=== PATIENT | male | born 1975 | race Caucasian/White ===

== ENCOUNTER 2016-09-21 20:41 | Emergency (ER) | payer OTHER ==
[2016-09-21 21:01] VITALS: BP 129/78; PULSE 76; RESP 20; TEMP 97.6
--- NOTE | 2016-09-21 21:08 | ED ---
General Adult HPI - General Chief complaint: Shortness of Breath Stated complaint: IHS/Rib Pain Time Seen by Provider: 09/21/16 21:02 Source: patient, RN notes reviewed Mode of arrival: ambulatory Limitations: no limitations - History of Present Illness Initial comments: 41-year-old male presents emergency Department chief complaint right sided rib injury. Patient states that he was at work and states that he was walking forward went to reach for something and caught his rib on a metal bar. Patient states he walked right into a metal bar. Patient states that in 4 hours prior arrival. Patient states the pain has improved with icing but he continues to have pain. Denies any abdominal pain including nausea, vomiting diarrhea constipation. Patient states that he does have some mild shortness of breath but was related to pain. Patient states there is a area of a red genesis on his right anterior chest wall - Related Data Home Medications Medication Instructions Recorded Confirmed No Known Home Medications [No 09/21/16 09/21/16 Known Home Medications] Allergies Allergy/AdvReac Type Severity Reaction Status Date / Time codeine AdvReac Nausea & Verified 09/21/16 21:01 Vomiting Review of Systems ROS Statement: Those systems with pertinent positive or pertinent negative responses have been documented in the HPI. ROS Other: All systems not noted in ROS Statement are negative. Past Medical History Past Medical History: Asthma History of Any Multi-Drug Resistant Organisms: None Reported Past Surgical History: No Surgical Hx Reported Past Psychological History: No Psychological Hx Reported Smoking Status: Current every day smoker Past Alcohol Use History: Occasional Past Drug Use History: Marijuana General Exam Limitations: no limitations General appearance: alert, in no apparent distress Neck exam: Present: normal inspection, full ROM. Absent: tenderness, meningismus, lymphadenopathy Respiratory exam: Present: normal lung sounds bilaterally, chest wall tenderness (Moderate tenderness over the mid to lower right sided anterior rib region). Absent: respiratory distress, wheezes, rales, rhonchi, stridor Cardiovascular Exam: Present: regular rate, normal rhythm, normal heart sounds. Absent: systolic murmur, diastolic murmur, rubs, gallop, clicks GI/Abdominal exam: Present: soft, normal bowel sounds. Absent: distended, tenderness, guarding, rebound, rigid Skin exam: Present: warm, dry, intact, normal color. Absent: rash Course Vital Signs 09/21/16 20:58 Temperature 97.6 F Pulse Rate 76 Respiratory 20 Rate Blood Pressure 129/78 O2 Sat by Pulse 97 Oximetry Medical Decision Making - Medical Decision Making 41-year-old male presented for chest wall injury. There is no acute fracture or pneumothorax. Patient was otherwise chest wall contusion. Patient will be discharged advised take Tylenol Motrin. Disposition Clinical Impression: Chest wall contusion Disposition: HOME SELF-CARE Condition: Stable Instructions: Chest Wall Pain (ED) Additional Instructions: Please return to the Emergency Department if symptoms worsen or any other concerns. Referrals: Ricky Berrios MD [Primary Care Provider] - 1-2 days Time of Disposition: 21:17
--- NOTE | 2016-09-21 21:28 | XR ---
EXAMINATION TYPE: XR chest 2V DATE OF EXAM: 09/21/2016 COMPARISON: NONE HISTORY: Cough and chest pain TECHNIQUE: Frontal and lateral views of the chest are obtained. FINDINGS: Heart and mediastinum are normal. Lungs are clear. There is no pleural effusion. Bony thor ax is intact. IMPRESSION: Normal chest
== END 2016-09-21 21:31 | disposition home or self-care (01) ==
LOC: EC 20:41
DX: S20.211A Contusion of right front wall of thorax, initial encounter (principal); R06.02 Shortness of breath; F17.200 Nicotine dependence, unspecified, uncomplicated; Z88.5 Allergy status to narcotic agent; W22.8XXA Striking against or struck by other objects, initial encounter; Y99.0 Civilian activity done for income or pay
CPT/HCPCS: 71020; 99284

== ENCOUNTER → 2016-12-13 | Outpatient (CLI) | payer BC, OTHER ==
--- NOTE | 2016-12-13 13:39 | MR ---
EXAMINATION TYPE: MR shoulder LT wo con DATE OF EXAM: 12/13/2016 COMPARISON: NONE HISTORY: Left shoulder pain TECHNIQUE: Multiplanar, multisequence imaging of the left shoulder is performed without contrast. FINDINGS: Rotator Cuff: There is intrasubstance signal within the distal margin of the infraspinatus tendon. Th ere is no through thickness tear or retraction. Acromioclavicular Joint: There is arthropathy of the acromioclavicular joint with mass effect upon th e supraspinatus tendon and muscle. Downsloping acromion noted. Glenohumeral Joint: Joint spaces preserved. No sizable joint effusion. Glenohumeral ligaments intact. Labrum: The labrum appears grossly intact given limitation of non-arthrogram study. Biceps Tendon: The long head of biceps is in normal location within bicipital groove. Bone marrow signal: No focal abnormal marrow signal is appreciated. IMPRESSION: Within the distal margin insertion infraspinatus tears intrasubstance signal compatible tendinosis. P artial intrasubstance tear suspected with no evidence of through thickness tear or retraction. Impingement secondary to hypertrophic change of the AC joint.
== END | disposition home or self-care (01) ==
LOC: RADMRIMAIN 12:39
PROVIDERS: ATTEND Internal Medicine
DX: S46.012A Strain of muscle(s) and tendon(s) of the rotator cuff of left shoulder, initial encounter (principal); M25.812 Other specified joint disorders, left shoulder

== ENCOUNTER → 2023-07-15 | Outpatient (CLI) | payer SELFPAY ==
--- NOTE | 2023-07-19 14:42 | MR ---
MRI left hand without contrast INDICATION: Cellulitis left upper arm. Pain, redness, swelling and limited movement of third metacarp al phalangeal region, dog bite in the area of interest 1 month ago. COMPARISON: Plain radiograph hand 02/08/2015 Multiplanar, multisequential MR imaging of the left hand was obtained without IV contrast. FINDINGS: Tendons: There is discontinuity of the extensor tendon of the third finger at the level of the metacarpal head with significant associated edema. Notably, there is no retraction of the tendon and it is uncertain if the tendon is infected versus lacerated during trauma. The remainder of the flexor and extensor tendons are grossly intact. Bone marrow: There is a 0.7 cm area of bone marrow edema within the head of the third metacarpal dorsally at the l evel of the discontinuous extensor tendon with loss of normal fatty marrow signal on T2-weighted imag ing, raising concern for possible osteomyelitis, however, lack of thin cuts and axial and sagittal T1 imaging in this area limit evaluation. Musculature/soft tissue: There is edema within the soft tissues of the third finger dorsally at the level of the metacarpal ph alangeal joint and third metacarpal head surrounding the discontinuous extensor tendon. Other: There is edema within the second, third and fourth metacarpal phalangeal joints. IMPRESSION: Edema surrounding and within the third extensor tendon at the level of the metacarpophalangeal joint with tendon discontinuity and bone marrow edema within the third metacarpal head and probable loss of normal fatty signal on T2-weighted imaging. These findings are suspicious for cellulitis and possibl e tendon laceration versus infection within the tendon. Osteomyelitis of the head of the third metaca rpal is also a possibility, however, lack of axial/sagittal T1 weighting imaging and thinner cuts barfield its evaluation. Evaluation with hand surgeon is recommended without delay given possible osteomyelit is and probable extensive cellulitis and/or traumatic injury. Additional imaging can be obtained to i nclude triple phase bone scan versus MRI with and without contrast to include thin cuts of this regio n with at least two view T1 and T2FS imaging with high field strength magnet and dedicated coil. Small amount of edema is also seen within the third metacarpal phalangeal joint, possibly due to a se ptic arthritis, however, similar amounts of edema are also seen in the second and fourth metacarpal p halangeal joints. Findings were discussed with the ordering physician Dr. Ramo Juan at the time of this dictation 2 :15 PM on 07/19/[address] Rodriguez.
== END | disposition home or self-care (01) ==
LOC: RADMRIMAIN 17:56
PROVIDERS: ATTEND Family Medicine
DX: M67.834 Other specified disorders of tendon, left wrist (principal); M00.9 Pyogenic arthritis, unspecified; L03.114 Cellulitis of left upper limb; R60.0 Localized edema

== ENCOUNTER → 2023-08-13 | Outpatient (CLI) | payer BC ==
[2023-08-13 16:46] LABS: Basophils # (A) 0.1 k/uL (0-0.2); Basophils % (A) 1 %; Eosinophils # (A) 0.2 k/uL (0-0.7); Eosinophils % (A) 1 %; HCT 50.5 % (39.0-53.0); HGB 16.9 gm/dL (13.0-17.5); Lymphocytes # (A) 3.1 k/uL (1.0-4.8); Lymphocytes % (A) 22 %; MCH 29.3 pg (25.0-35.0); MCHC 33.5 g/dL (31.0-37.0); MCV 87.6 fL (80.0-100.0); Monocytes # (A) 0.8 k/uL (0-1.0); Monocytes % (A) 6 %; Neutrophils # (A) 9.6 k/uL (1.3-7.7); Neutrophils % (A) 69 %; Platelet Count 242 k/uL (150-450); RBC 5.77 m/uL (4.30-5.90); RDW 13.5 % (11.5-15.5)
== END | disposition home or self-care (01) ==
LOC: LABPAT 15:25
PROVIDERS: ATTEND Orthopaedic Surgery Hand Surgery
DX: Z01.812 Encounter for preprocedural laboratory examination (principal)
CPT/HCPCS: 85025

== ENCOUNTER 2023-08-14 11:13 | Day surgery (SDC) | payer BC ==
--- NOTE | 2023-08-13 10:58 | P.HPOR ---
History of Present Illness H&P Date: 08/13/23 Subjective: This is a 48 year old male that presents today for initial evaluation regarding a left hand injury that occurred on June 15, 2023 when he was playing with his dog and the dogs tooth cut his knuckle. He had middle finger pain and swelling at the time of the injury and states that it did get infected and that he was placed on doxycycline which seem to completely clear the infection. He does have some pain and stiffness still present today but he is unable to extend his middle finger. Physical Examination: LUE: AIN/PIN/Radial/Ulnar/Median motor intact. Radial/Ulnar/Median SILT. 2+/4 Radial/Ulnar pulses palpated. 5/5 APB, 5/5 FDI. Negative Finkelsteins, negative CMC grind, negative Durkan's compression. Unable to fully extend at the middle finger MCP joint with 30 degree extensor lag present. Unable to sustain extension with resisted finger extension of the middle finger. Swelling present over MCP joint without erythema, warmth or drainage. Imaging: X-Rays of the left hand 3V taken in office today demonstrates no abnormality MRI of the left hand reviewed from 07/15/23 demonstrates complete disruptions of the middle finger extensor tendon with surrounding edema present. Impression: 1.)Left middle finger extensor tendon rupture s/p dog bite Plan: Diagnosis and treatment options were discussed with the patient. I recommend surgical intervention with a left middle finger extensor tendon laceration repair. Risks and benefits of surgery including bleeding, infection, damage to surrounding tissue, need for further surgery, residual numbness were discussed and the patient wished to go forward with surgery. I anticipate 4 weeks of right handed work only, if that is not available the patient may be off of work for 4 weeks. The patient was agreeable with this plan. -Tay Rojas DO Orthopedic Hand/Upper Extremity Surgeon Past Medical History Past Medical History: Asthma, GERD/Reflux, Osteoarthritis (OA) Additional Past Medical History / Comment(s): back problems, occasional blood in stool. History of Any Multi-Drug Resistant Organisms: None Reported Past Surgical History: No Surgical Hx Reported Additional Past Anesthesia/Blood Transfusion Reaction / Comment(s): no anesthesia hx Smoking Status: Current every day smoker Additional Past Alcohol Use History / Comment(s): smokes 1 ppd, started smoking 20 yrs old Additional Drug Use History / Comment(s): current marijuana use Medications and Allergies Home Medications Medication Instructions Recorded Confirmed Type Albuterol Sulfate [Ventolin HFA] 1 - 2 puff INHALATION Q6H PRN 02/22/23 History Nicotine 21Mg/24Hr Patch [Habitrol] 1 each TRANSDERM DIRECTED 02/22/23 History Omeprazole (Unknown Dose) 1 dose PO DAILY PRN 02/22/23 History Sildenafil Citrate [Viagra] 100 mg PO DIRECTED 02/22/23 History Allergies Allergy/AdvReac Type Severity Reaction Status Date / Time codeine AdvReac Nausea & Verified 03/21/23 15:47 Vomiting Physical Examination Osteopathic Statement: *. No significant issues noted on an osteopathic structural exam other than those noted in the History and Physical/Consult.
[~2023-08-14 11:13] MED LIST: HYDROmorphone 0.5 MG/0.5 ML SYRINGE IVP PRN; LIDOCAINE 1% (10MG/ML) FOR IV START INTRADERMA PRN; droPERidol 5 MG/2 ML VIAL IVP ONE
[2023-08-14] MEDS: LACTATED RINGERS 1,000 ML IV SCH (11:38)
[2023-08-14] MEDS: DEXAMETHASONE SOD PHOSPHATE 4 MG/ML 1 ML VIAL IV ONE (11:52)
[2023-08-14] MEDS: FAMOTIDINE 20 MG/2 ML VIAL IVP ONE (11:52)
[2023-08-14] MEDS: ONDANSETRON 4 MG/2 ML VIAL IVP ONE (11:52)
[2023-08-14] MEDS ORDERED: HYDROmorphone (PF) 1 MG/ML ONE (12:33)
[2023-08-14] MEDS ORDERED: LIDOCAINE 1% INJ 10MG/ML (20 ML MDV) ONE (12:33)
[2023-08-14] MEDS ORDERED: MIDAZOLAM 2 MG/2 ML VIAL ONE (12:33)
[2023-08-14] MEDS ORDERED: PROPOFOL 10 MG/ML 20 ML VIAL IV ONE (12:33)
[2023-08-14] MEDS ORDERED: fentaNYL (PF) 50 MCG/ML 2 ML AMP ONE (12:33)
[2023-08-14] MEDS: LIDOCAINE 2% INJ 20 MG/ML SQ ONE ×2 (12:52→13:14)
[2023-08-14] MEDS: BUPIVACAINE (PF) 0.5% 30 ML VIAL SQ ONE ×2 (12:52→13:14)
[2023-08-14 14:17] VITALS: BP 122/70; PULSE 65; RESP 16; TEMP 97.3
--- NOTE | 2023-08-14 19:33 | P.OP ---
Date of Procedure: 08/14/23 Preoperative Diagnosis: Left middle finger zone 5 extensor tendon laceration Postoperative Diagnosis: Left middle finger zone 5 extensor tendon laceration Procedure(s) Performed: Left middle finger zone 5 extensor tendon laceration repair Anesthesia: JULIANNE Surgeon: Tay Rojas Thermoforming Operator #1: Rigo Donaldson Estimated Blood Loss (ml): 0 Pathology: none sent Condition: stable Disposition: PACU Description of Procedure: This is a 48 year old male who presents today for a left middle finger extensor tendon repair. Risks and benefits of surgery were discussed with the patient including bleeding, damage to surrounding tissue, infection, need for further surgery as well as risks of anesthesia including pulmonary embolism and even and the patient wished to proceed with surgical intervention. The patient was seen in the pre-operative area by myself. Consent and H&P were completed and updated. The correct extremity was marked in the pre-operative area by myself and all other questions were answered. Operative Narrative: The patient was brought to the operating room by the department of anesthesia. They remained on the portable stretcher and a rolling hand table was brought to the side of the operative extremity. Pre-operative time out was performed indicating the correct patient, procedure and laterality. All in the room agreed. Pre-operative antibiotics were given prior to skin incision. The patient was then drifted off to sleep by the department of anesthesia. A nonsterile tourniquet was then applied to the operative extremity and the left upper extremity was then prepped and draped in normal sterile fashion. The operative extremity was the exsanguinated with an esmarch bandage and the tourniquet was inflated to 250mmHg. Previous laceration at level of the MCP was re-opened and extended proximally a nd distally with 15 blade scalpel. Blunt dissection was taken through subcutaneous tissues. There was abundant scar tissue present at the level of the MCP joint, this was excised. There was a 100% laceration of the EDC to the middle finger. Adhesions were spread and the tendon ends were able to glide smoothly and were easily approximated. A 4 strand crutiate core suture was used with 3-0 ethibond followed by interrupted 3-0 ethibond in figure of 8 fashion. The wound was then irrigated and skin closure was performed with 4-0 nylon. 10cc's of 0.5% bupivicaine was injected into the subcuatneous tissues and the patient was placed in a extension splint. Tourniquet was let down and the hand had immediate perfusion. The patient was then woken by the department of anesthesia and transferred to PACU in stable condition. Rigo BERRY was present to assist in retraction and extensor tendon repair. Tay Rojas D.O. Orthopedic Hand/Upper Extremity Surgeon Tay Rojas D.O. Orthopedic Hand/Upper Extremity Surgeon
== END 2023-08-14 14:29 | disposition home or self-care (01) ==
LOC: OR 11:13
PROVIDERS: ATTEND Orthopaedic Surgery Hand Surgery
DX: S66.323A Laceration of extensor muscle, fascia and tendon of left middle finger at wrist and hand level, initial encounter (principal); J45.909 Unspecified asthma, uncomplicated; K21.9 Gastro-esophageal reflux disease without esophagitis; M19.90 Unspecified osteoarthritis, unspecified site; F17.210 Nicotine dependence, cigarettes, uncomplicated; F12.90 Cannabis use, unspecified, uncomplicated; Z88.5 Allergy status to narcotic agent; Z79.899 Other long term (current) drug therapy; Z79.51 Long term (current) use of inhaled steroids; W54.1XXA Struck by dog, initial encounter; Y93.89 Activity, other specified
CPT/HCPCS: 26418; J2001 ×2; J2250; J1100; J0690; J2405; J3010; J3490; J1170; J2704; J0665